=== PATIENT | female | born 1970 | race Caucasian/White ===

== ENCOUNTER 2020-01-21 21:33 | Inpatient (IN) | payer BC, MEDICARE ==
[~2020-01-21] VITALS: Ht 160 cm; Wt 84.0 kg
[2020-01-21] MEDS ORDERED: NOREPINEPHRINE 8 MG in SODIUM CHLORIDE 0.9% 242 ML IV PRN (22:00)
[2020-01-21] MEDS ORDERED: MIDAZOLAM HCL 50 MG in SODIUM CHLORIDE 0.9% 40 ML IV PRN (22:00)
[2020-01-21 22:59] LABS: MEAN CORPUSCULAR HEMOGLOBIN 24.2 pg (27.0-34.8); MEAN CORPUSCULAR HGB CONC 30.9 g/dL (32.4-35.8); MEAN PLATELET VOLUME 8.7 fL (7.4-10.4); PLATELET COUNT 262 x10^3/uL (130-400); RED BLOOD COUNT 4.34 x10^6/uL (3.82-5.3); RED CELL DISTRIBUTION WIDTH 20.6 % (9.6-15.2)
[2020-01-21 23:07] LABS: ALANINE AMINOTRANSFERASE 32 U/L (12-78); ALBUMIN 1.3 g/dL (3.4-5.0); ANION GAP 10 mmol/L (5-15); CALCIUM 8.7 mg/dL (8.5-10.1); CHLORIDE 94 mmol/L (98-107); CREATININE 1.15 mg/dL (0.55-1.02)
--- NOTE | 2020-01-21 23:10 | NUR ---
PT TRANSFERED TO [facility] FROM [facility]. PT ALOC WITH BLOOD SUGAR ABOVE 700'S AT [facility], FEVER AND HYPOTENTION.
--- NOTE | 2020-01-21 23:10 | NUR ---
PROVIDER VERBAL REQUESTED VERSED STARTED AT 6MG/HR DRIP
[2020-01-21 23:11] LABS: ALKALINE PHOSPHATASE 403 U/L (45-117); BILIRUBIN,TOTAL 0.6 mg/dL (0.2-1.0); TOTAL PROTEIN 5.6 g/dL (6.4-8.2); TROPONIN I < 0.015 ng/mL (0.000-0.045)
[2020-01-21 23:19] LABS: MD YES
--- NOTE | 2020-01-21 23:22 | NUR ---
REPORT REC'D FROM MATTHEW CH.
[2020-01-21] MEDS ORDERED: FENTANYL PF 100 MCG/2ML ONE (23:24)
[2020-01-21] MEDS ORDERED: LACTATED RINGERS 1,000 ML IVBOLUS ONE (23:30)
[2020-01-21] MEDS ORDERED: POTASSIUM CHLORIDE PMX 100 ML IV ONE (23:30)
[2020-01-21] MEDS ORDERED: INSULIN REGULAR 100 UNITS/ML, 3ML VIAL IVPush ONE (23:30)
[2020-01-21 23:38] LABS: BAND#(MANUAL) 3.72 x10^3/uL; BANDS%(MANUAL) 12 % (0-7); LYMPH#(MANUAL) 0.31 x10^3/uL (1-3.4); LYMPHS% (MANUAL) 1 % (22-44); METAMYELOCYTES# (MANUAL) 2.17 x10^3/uL (0-0); METAMYELOCYTES% (MANUAL) 7 % (0-1); MONOS#(MANUAL) 0.31 x10^3/uL (0.3-2.7); MONOS% (MANUAL) 1 % (2-9); MYELOCYTES# (MANUAL) 0.62 x10^3/uL (0-0); MYELOCYTES% (MANUAL) 2 % (0-0); PROGRANULOCYTES# (MANUAL) 0.62 x10^3/uL (0-0); PROGRANULOCYTES% (MANUAL) 2 % (0-0); SEG#(MANUAL) 23.25 x10^3/uL (1.8-6.8); SEGS% (MANUAL) 75 % (42-75)
[2020-01-21 23:39] LABS: ANISOCYTOSIS 1+; PMNS WITH VACUOLES 1+; TOXIC GRAN 2+
[2020-01-21 23:40] LABS: <PLATELET ESTIMATE> ADEQUATE; GIANT PLATELETS 1+; LARGE PLATELETS 1+
[2020-01-21 23:41] LABS: MICROCYTOSIS 1+
[2020-01-21 23:42] LABS: HYPOCHROMIA 1+
[2020-01-22] MEDS ORDERED: INSULIN SINGLE DOSE, ER ONE (00:18)
[2020-01-22] MEDS ORDERED: VANCOMYCIN PER PHARMACY MC PRN (00:30)
[2020-01-22] MEDS ORDERED: INSULIN GLARGINE 100 UNITS/ML, PEN SQ-INSULIN SCH (00:30)
[2020-01-22] MEDS ORDERED: LACTATED RINGERS 1,000 ML IV SCH (00:30)
[2020-01-22] MEDS ORDERED: NOREPINEPHRINE 8 MG in SODIUM CHLORIDE 0.9% 242 ML IV PRN (00:30)
[2020-01-22] MEDS ORDERED: FENTANYL PF 100 MCG/2ML ONE (00:56)
[2020-01-22] MEDS ORDERED: ACETAMINOPHEN 650 MG SUPP PR PRN (01:00)
[2020-01-22] MEDS ORDERED: ONDANSETRON 2MG/ML, 2ML IVPush PRN (01:00)
[2020-01-22] MEDS ORDERED: VANCOMYCIN 500 MG in SODIUM CHLORIDE 0.9% 100 ML IV ONE (01:30)
[2020-01-22] MEDS ORDERED: GLUCAGON 1 MG IM PRN (02:30)
[2020-01-22] MEDS ORDERED: MIDAZOLAM HCL 50 MG in SODIUM CHLORIDE 0.9% 40 ML IV PRN (02:30)
[2020-01-22] MEDS ORDERED: PHARMACY MAY ADJ FOR RENAL FX MC SCH (02:30)
[2020-01-22] MEDS ORDERED: DEXTROSE 4 GM TAB.CHEW PO PRN (02:30)
[2020-01-22] MEDS ORDERED: VASOPRESSIN 20 UNIT in SODIUM CHLORIDE 0.9% 99 ML IV PRN (02:30)
[2020-01-22] MEDS: SODIUM CHLORIDE 0.9% 1,000 ML IV SCH ×2 (02:30→21:38)
[2020-01-22] MEDS ORDERED: INSULIN LISPRO 100 UNITS/ML, PEN SQ-INSULIN SCH ×2 (02:30→06:00)
[2020-01-22] MEDS ORDERED: DEXTROSE 50%, 50ML SYRINGE IVPush PRN (02:30)
[2020-01-22] MEDS ORDERED: LIDOCAINE-MPF 1%, 2ML ENDO PRN (02:30)
[2020-01-22] MEDS: HEPARIN 5,000 UNITS/ML, 1ML SQ SCH ×3 (02:42→18:22)
[2020-01-22] MEDS ORDERED: REGULAR INSULIN 100 UNITS in SODIUM CHLORIDE 0.9% 99 ML IV PRN (03:00)
[2020-01-22] MEDS: FAMOTIDINE 20 MG/2 ML IV SCH ×2 (03:01→14:19)
[2020-01-22] MEDS ORDERED: ACETAMINOPHEN 325 MG TABLET ONE (03:14)
[2020-01-22] MEDS: ACETAMINOPHEN 325 MG TABLET PO PRN ×2 (03:19→10:59)
[2020-01-22] MEDS ORDERED: SODIUM CHLORIDE 0.9% 1,000ML IVBOLUS ONE (03:30)
[2020-01-22] MEDS: NOREPINEPHRINE 32 MG in SODIUM CHLORIDE 0.9% 218 ML IV PRN ×2 (03:31→16:46)
[2020-01-22] MEDS: PIPERACILLIN/TAZO/PMX 3.375GM 50 ML IV SCH ×2 (03:37→06:33)
[2020-01-22] MEDS ORDERED: ETOMIDATE 20 MG/10 ML ONE (05:20)
[2020-01-22] MEDS ORDERED: MIDAZOLAM 1 MG/ML, 5ML ONE (05:20)
[2020-01-22] MEDS ORDERED: SUCCINYLCHOLINE 20 MG/ML, 10ML ONE (05:20)
[2020-01-22] MEDS: LACTOBACILLUS CHEW TABLET PO SCH ×4 (06:02→21:36)
[2020-01-22] MEDS: CLINDAMYCIN PMX 900MG/50ML 50 ML IV SCH ×3 (06:02→21:37)
[2020-01-22 06:05] LABS: MEAN CORPUSCULAR HEMOGLOBIN 24.2 pg (27.0-34.8); MEAN CORPUSCULAR HGB CONC 30.6 g/dL (32.4-35.8); MEAN PLATELET VOLUME 8.6 fL (7.4-10.4); PLATELET COUNT 250 x10^3/uL (130-400); RED BLOOD COUNT 4.34 x10^6/uL (3.82-5.3); RED CELL DISTRIBUTION WIDTH 20.8 % (9.6-15.2)
[2020-01-22 06:08] LABS: ALBUMIN 1.1 g/dL (3.4-5.0); ANION GAP 7 mmol/L (5-15); CALCIUM 8.4 mg/dL (8.5-10.1); CHLORIDE 100 mmol/L (98-107)
[2020-01-22 06:36] LABS: MD YES
[2020-01-22 06:38] LABS: ANISOCYTOSIS 1+; BAND#(MANUAL) 4.59 x10^3/uL; BANDS%(MANUAL) 16 % (0-7); LYMPH#(MANUAL) 0.57 x10^3/uL (1-3.4); LYMPHS% (MANUAL) 2 % (22-44); METAMYELOCYTES# (MANUAL) 0.29 x10^3/uL (0-0); METAMYELOCYTES% (MANUAL) 1 % (0-1); MICROCYTOSIS 1+; MONOS#(MANUAL) 0.29 x10^3/uL (0.3-2.7); MONOS% (MANUAL) 1 % (2-9); MYELOCYTES# (MANUAL) 0.57 x10^3/uL (0-0); MYELOCYTES% (MANUAL) 2 % (0-0); SEGS% (MANUAL) 78 % (42-75)
[2020-01-22 06:39] LABS: <PLATELET ESTIMATE> ADEQUATE; HYPOCHROMIA 1+; POLYCHROMASIA 1+
[2020-01-22 06:40] LABS: LARGE PLATELETS 1+; TOXIC GRAN 1+
[2020-01-22 06:43] LABS: ALANINE AMINOTRANSFERASE 26 U/L (12-78); ALKALINE PHOSPHATASE 355 U/L (45-117); BILIRUBIN,TOTAL 0.7 mg/dL (0.2-1.0); TOTAL PROTEIN 5.2 g/dL (6.4-8.2)
[2020-01-22 07:23] LABS: % IRON SATURATION 10 % (20-55); IRON LEVEL 13 mcg/dL (50-170); TOTAL IRON BINDING CAPACITY 131 mcg/dL (250-450)
[2020-01-22] MEDS: REGULAR INSULIN 100 UNITS in SODIUM CHLORIDE 0.9% 99 ML IV PRN (07:29)
[2020-01-22 07:38] LABS: CREATINE KINASE, TOTAL 25 U/L (26-192)
[2020-01-22] MEDS ORDERED: MAGNESIUM SULFATE PMX 4GM/100M 100 ML IVPB ONE (08:00)
[2020-01-22 08:09] LABS: C-REACTIVE PROTEIN, QUANT > 19.00 mg/dL (0.02-0.49)
[2020-01-22] MEDS: SODIUM CHLORIDE FLUSH 10ML SYR IVF SCH ×2 (08:22→21:36)
[2020-01-22 08:30] LABS: HCT (SEDRATE) 34.4 % (34.6-47.8)
[2020-01-22] MEDS ORDERED: LACTULOSE 10 GM/15 ML UDC PO/NG SCH (09:00)
[2020-01-22] MEDS ORDERED: LACTULOSE 10 GM/15 ML UDC PO SCH (09:00)
[2020-01-22 09:17] LABS: MICROSCOPIC INDICATED
[2020-01-22] MEDS: MEROPENEM 1 GM in SODIUM CHLORIDE 0.9% 100 ML IV SCH ×2 (10:37→17:37)
[2020-01-22] MEDS: MIDAZOLAM HCL 50 MG in SODIUM CHLORIDE 0.9% 40 ML IV PRN (11:20)
[2020-01-22] MEDS: FENTANYL PF 100 MCG/2ML IVPush PRN ×2 (12:48→15:09)
[2020-01-22] MEDS ORDERED: VANCOMYCIN 1,500 MG in SODIUM CHLORIDE 0.9% 250 ML IV SCH (17:00)
[2020-01-22] MEDS: PROPOFOL 100 ML IV PRN (21:32)
[2020-01-23] MEDS: MIDAZOLAM HCL 50 MG in SODIUM CHLORIDE 0.9% 40 ML IV PRN
[2020-01-23] MEDS: HEPARIN 5,000 UNITS/ML, 1ML SQ SCH ×3 (00:33→16:16)
[2020-01-23] MEDS: MEROPENEM 1 GM in SODIUM CHLORIDE 0.9% 100 ML IV SCH ×3 (01:39→18:01)
[2020-01-23] MEDS: FAMOTIDINE 20 MG/2 ML IV SCH ×2 (03:28→14:03)
[2020-01-23 04:16] LABS: MEAN CORPUSCULAR HGB CONC 31.6 g/dL (32.4-35.8); MEAN PLATELET VOLUME 8.6 fL (7.4-10.4); PLATELET COUNT 174 x10^3/uL (130-400); RED BLOOD COUNT 3.75 x10^6/uL (3.82-5.3); RED CELL DISTRIBUTION WIDTH 20.1 % (9.6-15.2)
[2020-01-23 04:28] LABS: ANION GAP 6 mmol/L (5-15); CALCIUM 8.4 mg/dL (8.5-10.1); CHLORIDE 108 mmol/L (98-107); CREATININE 0.88 mg/dL (0.55-1.02)
[2020-01-23 04:55] LABS: MD YES
[2020-01-23 04:57] LABS: ANISOCYTOSIS 1+; BAND#(MANUAL) 0.95 x10^3/uL; BANDS%(MANUAL) 5 % (0-7); LYMPH#(MANUAL) 1.13 x10^3/uL (1-3.4); LYMPHS% (MANUAL) 6 % (22-44); MICROCYTOSIS 1+; MONOS#(MANUAL) 0.38 x10^3/uL (0.3-2.7); MONOS% (MANUAL) 2 % (2-9); POLYCHROMASIA 1+; SEG#(MANUAL) 16.44 x10^3/uL (1.8-6.8); SEGS% (MANUAL) 87 % (42-75)
[2020-01-23] MEDS: REGULAR INSULIN 100 UNITS in SODIUM CHLORIDE 0.9% 99 ML IV PRN (04:57)
[2020-01-23 04:58] LABS: <PLATELET ESTIMATE> ADEQUATE; <PLT MORPHOLOGY> NORMAL PLT MORPH; HYPOCHROMIA 1+; TOXIC GRAN 1+
[2020-01-23] MEDS: PROPOFOL 100 ML IV PRN (04:59)
[2020-01-23] MEDS: CLINDAMYCIN PMX 900MG/50ML 50 ML IV SCH ×3 (05:43→21:56)
[2020-01-23] MEDS: LACTOBACILLUS CHEW TABLET PO SCH ×4 (06:44→19:41)
[2020-01-23] MEDS: SODIUM CHLORIDE 0.9% 1,000 ML IV SCH ×3 (06:53→19:31)
[2020-01-23] MEDS ORDERED: VANCOMYCIN 1,500 MG in SODIUM CHLORIDE 0.9% 250 ML IV SCH (08:00)
[2020-01-23] MEDS: SODIUM CHLORIDE FLUSH 10ML SYR IVF SCH ×4 (08:12→19:42)
[2020-01-23] MEDS: INSULIN GLARGINE 100 UNITS/ML, PEN SQ-INSULIN SCH ×2 (11:57→19:50)
[2020-01-23] MEDS ORDERED: DEXTROSE 4 GM TAB.CHEW PO PRN (12:00)
[2020-01-23] MEDS ORDERED: GLUCAGON 1 MG IM PRN (12:00)
[2020-01-23] MEDS ORDERED: DEXTROSE 50%, 50ML SYRINGE IVPush PRN (12:00)
[2020-01-23] MEDS ORDERED: DEXMEDETOMIDINE 200 MCG in SODIUM CHLORIDE 0.9% 48 ML IV PRN (12:29)
--- NOTE | 2020-01-23 13:40 | NUR ---
TF per RD recs: - Vital HP w/ goal rate of @55mL/hr (on popofol >25mcg/kg/min), - Vital HP @65mL/hr (on popofol <25mcg/kg/min); - Vital HP @70mL/hr (OFF popofol >25mcg/kg/min)
--- NOTE | 2020-01-23 13:41 | NUR ---
TF per RD recs: advance TF as medically appropriate and levophed remains <0.10mcg/kg/min - Vital HP w/ goal rate of @55mL/hr (on propofol >25mcg/kg/min), - Vital HP @65mL/hr (on propofol <25mcg/kg/min); - Vital HP @70mL/hr (OFF propofol >25mcg/kg/min) Addendum: 01/23/20 at [address] Amended: Links added.
--- NOTE | 2020-01-23 13:50 | NUR ---
TF per RD recs (updated): - Vital HP @55mL/hr (on propofol >25mcg/kg/min), - Vital HP @65mL/hr (on propofol <25mcg/kg/min); - Vital HP @70mL/hr (OFF propofol) Addendum: 01/23/20 at [address] Amended: Links added.
[2020-01-23] MEDS: NOREPINEPHRINE 32 MG in SODIUM CHLORIDE 0.9% 218 ML IV PRN (14:14)
[2020-01-23] MEDS: INSULIN LISPRO 100 UNITS/ML, PEN SQ-INSULIN SCH ×2 (16:00→19:47)
[2020-01-23] MEDS ORDERED: HYDROcodone/APAP 5/325 TABLET ONE (18:06)
[2020-01-23] MEDS ORDERED: DOCUSATE 100 MG CAPSULE ONE (18:06)
[2020-01-23] MEDS: HYDROcodone/APAP 5/325 TABLET PO PRN (18:08)
[2020-01-24] MEDS: FAMOTIDINE 20 MG/2 ML IV SCH ×2 (01:30→14:12)
[2020-01-24] MEDS: HEPARIN 5,000 UNITS/ML, 1ML SQ SCH ×3 (01:30→16:01)
[2020-01-24] MEDS: MEROPENEM 1 GM in SODIUM CHLORIDE 0.9% 100 ML IV SCH ×3 (02:19→18:22)
[2020-01-24] MEDS: HYDROcodone/APAP 5/325 TABLET PO PRN ×4 (04:02→16:01)
[2020-01-24 04:21] LABS: MEAN CORPUSCULAR HEMOGLOBIN 24.1 pg (27.0-34.8); MEAN CORPUSCULAR HGB CONC 31.5 g/dL (32.4-35.8); MEAN PLATELET VOLUME 8.8 fL (7.4-10.4); PLATELET COUNT 148 x10^3/uL (130-400); RED BLOOD COUNT 3.45 x10^6/uL (3.82-5.3); RED CELL DISTRIBUTION WIDTH 20.5 % (9.6-15.2)
[2020-01-24] MEDS ORDERED: SIMETHICONE 125 MG CHEW TAB PO PRN (04:30)
[2020-01-24 04:35] LABS: ANION GAP 4 mmol/L (5-15); CALCIUM 7.9 mg/dL (8.5-10.1); CHLORIDE 108 mmol/L (98-107)
[2020-01-24 04:37] LABS: CREATININE 0.62 mg/dL (0.55-1.02)
[2020-01-24] MEDS: SODIUM CHLORIDE 0.9% 1,000 ML IV SCH ×2 (05:05→13:20)
[2020-01-24] MEDS: CLINDAMYCIN PMX 900MG/50ML 50 ML IV SCH ×3 (05:08→20:59)
[2020-01-24] MEDS: INSULIN LISPRO 100 UNITS/ML, PEN SQ-INSULIN SCH ×4 (05:08→21:08)
[2020-01-24] MEDS: LACTOBACILLUS CHEW TABLET PO SCH ×4 (05:11→20:59)
[2020-01-24 05:50] LABS: MD YES
[2020-01-24 05:51] LABS: <PLATELET ESTIMATE> ADEQUATE; <PLT MORPHOLOGY> NORMAL PLT MORPH; ANISOCYTOSIS 1+; BAND#(MANUAL) 0.13 x10^3/uL; BANDS%(MANUAL) 1 % (0-7); EOS#(MANUAL) 0.13 x10^3/uL (0.0-0.4); EOS% (MANUAL) 1 % (1-7); HYPOCHROMIA 1+; LYMPH#(MANUAL) 0.51 x10^3/uL (1-3.4); LYMPHS% (MANUAL) 4 % (22-44); MICROCYTOSIS 1+; MONOS#(MANUAL) 0.26 x10^3/uL (0.3-2.7); MONOS% (MANUAL) 2 % (2-9); POLYCHROMASIA 1+; SEG#(MANUAL) 11.78 x10^3/uL (1.8-6.8); SEGS% (MANUAL) 92 % (42-75); TOXIC GRAN 1+
[2020-01-24] MEDS: SODIUM CHLORIDE FLUSH 10ML SYR IVF SCH ×2 (08:27→20:59)
[2020-01-24] MEDS ORDERED: LACTULOSE 20 GM/30 ML UDC PO PRN (08:30)
[2020-01-24] MEDS ORDERED: BISACODYL 10 MG SUPP PR PRN (08:30)
[2020-01-24] MEDS: INSULIN GLARGINE 100 UNITS/ML, PEN SQ-INSULIN SCH ×2 (08:33→21:08)
[2020-01-24] MEDS: DOCUSATE 100 MG CAPSULE PO SCH (08:52)
[2020-01-24] MEDS ORDERED: DOCUSATE 100 MG CAPSULE PO SCH (09:00)
[2020-01-24] MEDS: ACETAMINOPHEN 325 MG TABLET PO PRN (14:13)
[2020-01-24] MEDS: MORPHINE SULFATE 4 MG/ML, 1ML IVPush PRN ×2 (18:28→19:10)
[2020-01-24] MEDS: SENNA/DOCUSATE TABLET PO SCH (20:59)
[2020-01-24] MEDS ORDERED: FAMOTIDINE 20 MG TABLET PO SCH (21:00)
[2020-01-25] MEDS: ACETAMINOPHEN 325 MG TABLET PO PRN (00:16)
[2020-01-25] MEDS: MEROPENEM 1 GM in SODIUM CHLORIDE 0.9% 100 ML IV SCH ×3 (01:30→18:07)
[2020-01-25] MEDS: HEPARIN 5,000 UNITS/ML, 1ML SQ SCH ×3 (01:30→18:07)
[2020-01-25 01:31] VITALS: BP 80/46
[2020-01-25 03:56] LABS: ANION GAP 6 mmol/L (5-15); BASOPHILS % (AUTO) 0 % (0-1); CHLORIDE 106 mmol/L (98-107); EOSINOPHILS % (AUTO) 1 % (1-7); LYMPHOCYTES % (AUTO) 9 % (22-44); MEAN CORPUSCULAR HEMOGLOBIN 23.9 pg (27.0-34.8); MEAN CORPUSCULAR HGB CONC 31.4 g/dL (32.4-35.8); MONOCYTES % (AUTO) 2 % (2-9); NEUTROPHILS % (AUTO) 88 % (42-75); PLATELET COUNT 180 x10^3/uL (130-400); RED BLOOD COUNT 3.57 x10^6/uL (3.82-5.3); RED CELL DISTRIBUTION WIDTH 20.5 % (9.6-15.2)
[2020-01-25 04:07] LABS: CREATININE 0.72 mg/dL (0.55-1.02)
[2020-01-25 04:24] LABS: MD SCAN
[2020-01-25] MEDS: CLINDAMYCIN PMX 900MG/50ML 50 ML IV SCH ×3 (04:56→21:35)
[2020-01-25 05:33] VITALS: BP 92/57
[2020-01-25] MEDS: LACTOBACILLUS CHEW TABLET PO SCH ×4 (06:10→21:35)
[2020-01-25] MEDS: INSULIN LISPRO 100 UNITS/ML, PEN SQ-INSULIN SCH ×4 (06:14→21:43)
[2020-01-25] MEDS: MORPHINE SULFATE 4 MG/ML, 1ML IVPush PRN ×4 (06:21→21:36)
[2020-01-25 08:00] VITALS: BP 118/75
[2020-01-25] MEDS: DOCUSATE 100 MG CAPSULE PO SCH (10:01)
[2020-01-25] MEDS: INSULIN GLARGINE 100 UNITS/ML, PEN SQ-INSULIN SCH ×2 (10:03→21:43)
[2020-01-25] MEDS: SODIUM CHLORIDE FLUSH 10ML SYR IVF SCH ×2 (10:04→21:00)
[2020-01-25] MEDS ORDERED: FUROSEMIDE 40 MG/4 ML IV ONE (11:00)
[2020-01-25] MEDS: LACTULOSE 20 GM/30 ML UDC PO SCH ×2 (12:16→16:36)
[2020-01-25] MEDS: BENZOCAINE AEROSOL SPRAY 20%, 60ML TP PRN (13:22)
[2020-01-25 14:00] VITALS: BP 89/58
[2020-01-25] MEDS: SENNA/DOCUSATE TABLET PO SCH (16:37)
[2020-01-25 20:01] VITALS: BP 99/59
[2020-01-26 01:35] VITALS: BP 102/64
[2020-01-26] MEDS: MEROPENEM 1 GM in SODIUM CHLORIDE 0.9% 100 ML IV SCH ×3 (01:50→18:00)
[2020-01-26] MEDS: HEPARIN 5,000 UNITS/ML, 1ML SQ SCH ×3 (01:50→18:01)
[2020-01-26 04:29] LABS: ANION GAP 4 mmol/L (5-15); CALCIUM 8.3 mg/dL (8.5-10.1); CHLORIDE 106 mmol/L (98-107)
[2020-01-26] MEDS: CLINDAMYCIN PMX 900MG/50ML 50 ML IV SCH ×3 (04:52→21:47)
[2020-01-26] MEDS: LACTOBACILLUS CHEW TABLET PO SCH (06:16)
[2020-01-26] MEDS: MORPHINE SULFATE 4 MG/ML, 1ML IVPush PRN ×3 (06:26→20:23)
[2020-01-26 08:08] VITALS: BP 111/72
[2020-01-26] MEDS: LACTULOSE 20 GM/30 ML UDC PO SCH (09:10)
[2020-01-26] MEDS: DOCUSATE 100 MG CAPSULE PO SCH (09:10)
[2020-01-26] MEDS: BENZOCAINE AEROSOL SPRAY 20%, 60ML TP PRN ×3 (09:17→18:01)
[2020-01-26] MEDS: SODIUM CHLORIDE FLUSH 10ML SYR IVF SCH ×2 (09:18→21:47)
[2020-01-26] MEDS: INSULIN LISPRO 100 UNITS/ML, PEN SQ-INSULIN SCH ×4 (09:19→21:46)
[2020-01-26] MEDS: INSULIN GLARGINE 100 UNITS/ML, PEN SQ-INSULIN SCH ×2 (09:20→21:47)
[2020-01-26 14:52] VITALS: BP 106/69
[2020-01-26] MEDS: TRIAMCINOLONE MM SCH ×2 (16:00→21:00)
[2020-01-26 20:55] VITALS: BP 132/75
[2020-01-26] MEDS: TRAZODONE 50MG TABLET PO SCH (21:46)
[2020-01-27] MEDS: HEPARIN 5,000 UNITS/ML, 1ML SQ SCH ×3 (01:40→16:55)
[2020-01-27] MEDS: MEROPENEM 1 GM in SODIUM CHLORIDE 0.9% 100 ML IV SCH ×3 (01:40→16:56)
[2020-01-27] MEDS: HYDROcodone/APAP 5/325 TABLET PO PRN ×5 (01:41→23:18)
[2020-01-27 02:14] VITALS: BP 104/56
[2020-01-27] MEDS: CLINDAMYCIN PMX 900MG/50ML 50 ML IV SCH ×3 (06:10→22:13)
[2020-01-27] MEDS: TRIAMCINOLONE MM SCH ×4 (06:11→21:52)
[2020-01-27 08:07] VITALS: BP 106/66
[2020-01-27] MEDS: SODIUM CHLORIDE FLUSH 10ML SYR IVF SCH ×2 (09:00→21:52)
[2020-01-27] MEDS: INSULIN LISPRO 100 UNITS/ML, PEN SQ-INSULIN SCH ×4 (09:01→22:14)
[2020-01-27] MEDS: INSULIN GLARGINE 100 UNITS/ML, PEN SQ-INSULIN SCH ×2 (09:02→22:15)
[2020-01-27] MEDS: BENZOCAINE AEROSOL SPRAY 20%, 60ML TP PRN (12:12)
[2020-01-27 14:12] VITALS: BP 114/77
[2020-01-27 21:49] VITALS: BP 133/87
[2020-01-27] MEDS: TRAZODONE 50MG TABLET PO SCH (21:51)
[2020-01-28] MEDS: MEROPENEM 1 GM in SODIUM CHLORIDE 0.9% 100 ML IV SCH ×2 (01:47→11:29)
[2020-01-28] MEDS: HEPARIN 5,000 UNITS/ML, 1ML SQ SCH ×2 (01:47→11:29)
[2020-01-28] MEDS: MORPHINE SULFATE 4 MG/ML, 1ML IVPush PRN ×2 (02:00→11:29)
[2020-01-28 02:01] VITALS: BP 115/74
[2020-01-28 05:31] LABS: BASOPHILS % (AUTO) 1 % (0-1); EOSINOPHILS % (AUTO) 1 % (1-7); LYMPHOCYTES % (AUTO) 16 % (22-44); MEAN CORPUSCULAR HEMOGLOBIN 24.7 pg (27.0-34.8); MEAN PLATELET VOLUME 7.5 fL (7.4-10.4); MONOCYTES % (AUTO) 6 % (2-9); NEUTROPHILS % (AUTO) 76 % (42-75); PLATELET COUNT 380 x10^3/uL (130-400); RED BLOOD COUNT 3.31 x10^6/uL (3.82-5.3)
[2020-01-28 05:33] LABS: MD NO
[2020-01-28 05:38] LABS: ANION GAP 5 mmol/L (5-15); CALCIUM 8.6 mg/dL (8.5-10.1); CHLORIDE 106 mmol/L (98-107)
[2020-01-28 05:51] LABS: CREATININE 0.52 mg/dL (0.55-1.02); TRIGLYCERIDES 162 mg/dL (50-200)
[2020-01-28] MEDS: CLINDAMYCIN PMX 900MG/50ML 50 ML IV SCH ×2 (06:35→13:53)
[2020-01-28] MEDS: TRIAMCINOLONE MM SCH ×2 (06:35→11:32)
[2020-01-28 07:35] VITALS: BP 101/66
[2020-01-28] MEDS: INSULIN LISPRO 100 UNITS/ML, PEN SQ-INSULIN SCH ×2 (08:34→11:39)
[2020-01-28] MEDS: SODIUM CHLORIDE FLUSH 10ML SYR IVF SCH (08:35)
[2020-01-28] MEDS: INSULIN GLARGINE 100 UNITS/ML, PEN SQ-INSULIN SCH (08:35)
[2020-01-28] MEDS: HYDROcodone/APAP 5/325 TABLET PO PRN ×2 (08:41→13:12)
[2020-01-28] MEDS: BENZOCAINE AEROSOL SPRAY 20%, 60ML TP PRN (08:42)
[2020-01-28] MEDS ORDERED: TRIA5PAS10 MM (13:08)
[2020-01-28] MEDS ORDERED: BENZ57SP TP (13:08)
[2020-01-28] MEDS ORDERED: INSU100I11 SQ-INSULIN (13:08)
[2020-01-28] MEDS ORDERED: INSU100I13 SQ-INSULIN (13:08)
[2020-01-28] MEDS ORDERED: BISA10SU4 PR (13:08)
[2020-01-28] MEDS ORDERED: SIME125T PO (13:08)
[2020-01-28] MEDS ORDERED: HEPA50002 SQ (13:08)
[2020-01-28] MEDS ORDERED: ACET325T26 PO (13:08)
[2020-01-28] MEDS ORDERED: TRAZ50TA66 PO (13:08)
[2020-01-28] MEDS ORDERED: HYDR-826 PO (13:08)
[2020-01-28] MEDS ORDERED: HYDR-3237 PO (13:08)
[2020-01-28] MEDS ORDERED: MERO1PIG IV (13:08)
[2020-01-28 13:38] VITALS: BP 129/94
== END 2020-01-28 15:05 | DRG 871 ==
LOC: ED 23:22 → EDIP 01-22 00:20 → CCU 01-22 01:52 → 5SO 01-24 17:36
PROVIDERS: ADMIT Family Medicine; ATTEND Internal Medicine
PROC: 5A1945Z Respiratory Ventilation, 24-96 Consecutive Hours (ICD-10-PCS; 2020-01-21)
PROC: 0BH17EZ Insertion of Endotracheal Airway into Trachea, Via Natural or Artificial Opening (ICD-10-PCS; 2020-01-21)
PROC: 02H633Z Insertion of Infusion Device into Right Atrium, Percutaneous Approach (ICD-10-PCS; 2020-01-21)
PROC: 3E033XZ Introduction of Vasopressor into Peripheral Vein, Percutaneous Approach (ICD-10-PCS; 2020-01-21)
PROC: 0T9B70Z Drainage of Bladder with Drainage Device, Via Natural or Artificial Opening (ICD-10-PCS; principal; 2020-01-22)
DX: A40.8 Other streptococcal sepsis (principal); R65.21 Severe sepsis with septic shock; E43 Unspecified severe protein-calorie malnutrition; G93.41 Metabolic encephalopathy; J18.9 Pneumonia, unspecified organism; J96.01 Acute respiratory failure with hypoxia; N17.0 Acute kidney failure with tubular necrosis; E87.1 Hypo-osmolality and hyponatremia; G82.20 Paraplegia, unspecified; N39.0 Urinary tract infection, site not specified; M46.26 Osteomyelitis of vertebra, lumbar region; Z20.828 Contact with and (suspected) exposure to other viral communicable diseases; B95.61 Methicillin susceptible Staphylococcus aureus infection as the cause of diseases classified elsewhere; B96.1 Klebsiella pneumoniae [K. pneumoniae] as the cause of diseases classified elsewhere; D50.9 Iron deficiency anemia, unspecified; E10.65 Type 1 diabetes mellitus with hyperglycemia; E83.42 Hypomagnesemia; F41.9 Anxiety disorder, unspecified; G47.00 Insomnia, unspecified; G89.29 Other chronic pain; K21.9 Gastro-esophageal reflux disease without esophagitis; K59.03 Drug induced constipation; L89.159 Pressure ulcer of sacral region, unspecified stage; T40.605A Adverse effect of unspecified narcotics, initial encounter; W13.2XXA Fall from, out of or through roof, initial encounter; Z68.32 Body mass index [BMI] 32.0-32.9, adult; Z79.4 Long term (current) use of insulin; Z79.891 Long term (current) use of opiate analgesic; Y93.89 Activity, other specified; Y92.89 Other specified places as the place of occurrence of the external cause; Y99.8 Other external cause status; Z88.5 Allergy status to narcotic agent
CPT/HCPCS: 36415; 36600; 71045; 74270; 80048; 80053; 80202; 81001; 82533; 82550; 82728; 82803; 82962; 83036; 83540; 83550; 83605; 83735; 84100; 84145; 84478; 84484; 85025; 85651; 86140; 86147; 87040; 87070; 87077; 87081; 87086; 87106; 87147; 87186; 87205; 93005; 93306; 94002; 94003; 94150; 96374; 96375; 99291; G0378; J1644; J1815; J1940; J2185; J2250; J2543; J2704; J3010; J3370; J0330; J2270; J3475; J7030; J7050; Q0177